=== PATIENT | male | born 1970 | race Caucasian/White ===

== ENCOUNTER 2024-02-04 06:19 | Day surgery (SDC) | payer BC, SELFPAY | END 2024-02-04 14:29 | disposition home or self-care (01) | LOC: GI 06:19 | PROVIDERS: ATTENDING PHYSICIAN Internal Medicine Gastroenterology | DX: Z12.11 Encounter for screening for malignant neoplasm of colon (principal); Z83.719 Family history of colon polyps, unspecified; K64.8 Other hemorrhoids; K64.4 Residual hemorrhoidal skin tags | CPT/HCPCS: G0105 ==

== ENCOUNTER 2024-03-13 13:00 | Emergency (ER) | payer BC, SELFPAY ==
[2024-03-13 13:02] VITALS: BP 145/98
--- NOTE | 2024-03-13 13:05 | ED.GENMED ---
ED Provider Triage
<Jeyson Moe PA-C - Last Filed: 03/13/24 13:06>
-
Patient seen by provider in Triage?: Seen in Triage
53-year-old male with history of hypertension had sudden onset of blue discoloration of left ring finger about an hour and a half prior to arrival. The tip the finger felt cold. It was numb. There is slight improvement since the onset. He had
COVID 2 weeks ago
Seen in triage with stable vital signs. Still with some discoloration of the left ring finger on exam but has capillary refill. Patient seen briefly in triage but will warrant further evaluation. Deferred on imaging or test pending further
assessment
No trauma.
History of Present Illness
<Jeyson Moe PA-C - Last Filed: 03/13/24 13:06>
General
Chief Complaint: Circulation Problem
Time Seen by Provider: 03/13/24 16:13
<Kalyani Olmos PA-C - Last Filed: 03/14/24 00:32>
General
Source: patient
Exam Limitations: none
History of Present Illness
History of Present Illness:
53yo right hand dominant male with a history of hypertension and seasonal allergies presenting with his for evaluation of left ring finger discoloration. Patient was washing his hands around 11:30 AM this morning when he started to notice that
the tip of his left ring finger felt tingly. He looked down and noticed that he had some bluish discoloration to the middle of the digit. He became concerned that he may have a blood clot so came to the ED for evaluation. His symptoms have since
improved and he no longer has any paresthesias and the discoloration has lightened somewhat. He denies any trauma to the finger. No associated pain. No swelling to the left arm. Of note, patient had a COVID infection about 1.5 weeks ago.
Phy Exam
<Kalyani Olmos PA-C - Last Filed: 03/14/24 00:32>
General Physical Exam
General Presentation: well appearing and no apparent distress
General age: appears stated age
General Skin: warm and dry
General Habitus: normal
General Mental: alert
ENT Exam
ENT Exam: normocephalic
Pulmonary Exam
Pulmonary Exam: no respiratory distress
Musculoskeletal Exam
Musculoskeletal Exam: other (No swelling noted to L arm)
Skin Exam
Skin Exam: warm/dry and other (Area of purple discoloration noted to the middle aspect of the L ring finger. Finger is non-tender. ROM of DIP, PIP, and MCP joint intact. Cap refill and sensation intact at distal fingertip. LUE is warm and well
perfused with 2+ radial pulse. )
Psychiatric Exam
Psychiatric Exam: normal mood/affect
Course
<Jeyson Moe PA-C - Last Filed: 03/13/24 13:06>
Vital Signs
Initial and Last Documented VS:
Initial Vital Signs
Temp Pulse Resp BP Pulse Ox
98.1 F 83 16 145/98 100
03/13/24 13:02 03/13/24 13:02 03/13/24 13:02 03/13/24 13:02 03/13/24 13:02
Last Documented Vital Signs
Temp Pulse Resp BP Pulse Ox
98.1 F 75 18 130/81 98
03/13/24 13:02 03/13/24 16:49 03/13/24 16:49 03/13/24 16:49 03/13/24 16:49
<Kalyani Olmos PA-C - Last Filed: 03/14/24 00:32>
Vital Signs
Initial and Last Documented VS:
Initial Vital Signs
Temp Pulse Resp BP Pulse Ox
98.1 F 83 16 145/98 100
03/13/24 13:02 03/13/24 13:02 03/13/24 13:02 03/13/24 13:02 03/13/24 13:02
Last Documented Vital Signs
Temp Pulse Resp BP Pulse Ox
98.1 F 75 18 130/81 98
03/13/24 13:02 03/13/24 16:49 03/13/24 16:49 03/13/24 16:49 03/13/24 16:49
<Kalyani Olmos PA-C - Last Filed: 03/14/24 00:32>
MDM/Problems Addressed
Differential Diagnosis Includes:
53yoM here with discoloration noted to the L ring finger earlier today. He became worried about a blood clot due to having COVID 1.5 weeks ago. Denies trauma. There is an area of purple discoloration noted to the middle of the digit on exam. ROM
intact and digit is non-tender. Cap refill and sensation intact at distal fingertip. LUE is well perfused with palpable radial pulse. No edema noted to the extremity.
There is no clinical evidence of DVT or arterial occlusion. Do not feel x-rays would be helpful as he denies trauma and there is no tenderness on exam. Discoloration is nonspecific and may be a skin manifestation of recent COVID illness. Advised
watchful waiting and f/u with PCP. Strict ED return precautions discussed. He was discharged in stable condition.
<Kalyani Olmos PA-C - Last Filed: 03/14/24 00:32>
*Critical Care Note
Total Time (30-74mins, 75-104mins- exclusive of procedures): Not Applicable
ED Attending Note
<Jeyson Moe PA-C - Last Filed: 03/13/24 13:06>
-
Portions of this chart may have been created with voice recognition software.� Occasional wrong word or��sound alike� substitutions may have occurred due to the inherent limitations of voice recognition software.
Discharge Plan
Departure
Patient Disposition: Home (Routine Discharge)
Date of Disposition: 03/13/24
Time of Disposition: 16:36
Patient with high blood pressure during this ER visit?: Yes
Discharge Problem:
Discoloration of skin of finger
Activity Restrictions/Additional Instructions:
Monitor the area and follow-up with your family doctor in 3-4 days.
Return to the ER with any worsening symptoms, spreading discoloration, new weakness/numbness/swelling of the extremity.
Interventions
Interventions:
*Risk Screen - Suicide Last Done: 03/13/24 16:48
*General Assessment Last Done: 03/13/24 14:06
*Neglect/Abuse Screening Last Done: 03/13/24 14:06
*ED COVID-19 Vaccine History Last Done: 03/13/24 14:06
*Nursing Disposition Last Done: 03/13/24 16:48
ED-Peripheral Vascular Assessment Last Done: 03/13/24 14:06
Discharge Date and Time
Discharge Date/Time: 03/13/24 17:28
Print Language: AZERI
[2024-03-13 16:48] VITALS: BP 130/81
[2024-03-13 16:49] VITALS: BP 130/81
== END 2024-03-13 17:28 | disposition home or self-care (01) ==
LOC: EMR 13:00
PROVIDERS: EMERGENCY PHYSICIAN Emergency Medicine; FAMILY PHYSICIAN Nurse Practitioner Family
DX: L98.8 Other specified disorders of the skin and subcutaneous tissue (principal); I10 Essential (primary) hypertension
CPT/HCPCS: 99282